=== PATIENT | female | born 1985 | race Two or more races ===

== ENCOUNTER 2020-11-17 05:40 | Emergency (ER) | payer OTHER ==
[~2020-11-17] VITALS: Ht 154.9 cm; Wt 77.1 kg
[2020-11-17] MEDS ORDERED: REMERON15 MG (05:53)
[2020-11-17] MEDS ORDERED: AMBIEN5 MG (05:53)
== END 2020-11-17 19:36 | disposition home or self-care (01) ==
LOC: ER 05:40
DX: O03.6 Delayed or excessive hemorrhage following complete or unspecified spontaneous abortion (principal); O26.851 Spotting complicating pregnancy, first trimester; Z3A.08 8 weeks gestation of pregnancy